=== PATIENT | male | born 1960 | race African-American/Black ===

== ENCOUNTER 2017-06-06 07:28 | Inpatient (IN) ==
[2017-06-06] MEDS ORDERED: LEVOFLOXACIN INJ 500 MG in PREMIX 1 EACH IV STA (10:07)
[2017-06-06] MEDS ORDERED: LEVOFLOXACIN INJ 100 ML IV ONE (10:43)
[2017-06-06 10:48] LABS: Basophils % 0.5 % (0.0-0.8); Eosinophils % 0.4 % (0.00-10.9); Hematocrit 33.4 VOL% (42.0-52.0); Hemoglobin 11.9 GM/DL (14.0-18.0); Immature Granulocytes % 0.4 %; Immature Granulocytes Absolute 0.03 #; Lymphocytes # 1.1 10*3/uL (1.4-4.0); Lymphocytes % 13.1 % (21.2-54.2); Mean Corpuscular HGB Conc 35.6 GM/DL (32-36); Mean Corpuscular Hemoglobin 32 PG (27-34); Mean Corpuscular Volume 90.8 FL (87-102); Mean Platelet Volume 9.3 FL (9.6-12.0); Monocytes % 12.5 % (1.7-12.7); Neutrophils # 5.9 10*3/uL (1.4-7.4); Neutrophils % 73.1 % (38.7-73.9); Platelet Count 310 T/CUMM (130-400); Red Blood Count 3.68 MC/CUMM (3.8-5.5)
[2017-06-06 10:59] LABS: Apearance,Urine CLEAR (Clear); Bilirubin,Urine Negative (Negative); Blood, Urine Negative (Negative); Glucose,Urine (UA) Negative (Negative); Ketones,Urine Negative (Negative); Mucus,Urine Occasional /LPF (Occasional); Nitrite,Urine Negative (Negative); Protein,Urine Negative; RBC,Urine <1 /HPF (0-4); Squamous Epithelial Cell,Urine Occasional /HPF (0-10); Urine Color Yellow (Yellow); Urine Specific Gravity 1.017 (1.001-1.035); WBC,Urine 2 /HPF (0-6)
[2017-06-06 11:27] LABS: Alanine Aminotransferase < 9 U/L (16-61); Albumin 2.2 G/DL (3.4-5.0); Alkaline Phosphatase 83 U/L (45-117); Aspartate Amino Transferase 22 U/L (0-37); Bilirubin,Total < 0.39 MG/DL (0.2-1.0); Blood Urea Nitrogen 10 MG/DL (7-18); Calcium 8.5 MG/DL (8.5-10.1); Glucose 102 MG/DL (74-106); Osmolality,Calculated 262.5 MOS/KG (273-304); Potassium 4.2 MMOL/L (3.5-5.1); Sodium 132 MMOL/L (136-145); Total Protein 7.3 G/DL (6.4-8.3)
[2017-06-06 13:27] LABS: Barbiturates Screen,Urine Negative (Negative); Benzodiazepines Screen,Urine Negative (Negative); Cannabinoid Screen,Urine Negative (Negative); Opiate Screen,Urine Negative (Negative); Phencyclidine Screen,Urine Negative (Negative)
[2017-06-06] MEDS ORDERED: SODIUM CHLORIDE 0.9% 1,000 ML IV SCH (13:30)
[2017-06-06] MEDS ORDERED: LEVOFLOXACIN INJ 500 MG in PREMIX 1 EACH IV SCH (14:00)
[2017-06-06] MEDS ORDERED: LORazepam 2 MG/1 ML VIAL IV PRN (18:18)
[2017-06-06] MEDS ORDERED: NICOTINE 21 MG/24 HR PATCH TRANSDERM PRN (18:18)
[2017-06-06] MEDS: PANTOPRAZOLE 40 MG VIAL IV SCH (18:20)
[2017-06-06] MEDS: DEXTROSE 5% NACL 0.9% 1,000 ML IV SCH (18:28)
[2017-06-06] MEDS: ENOXAPARIN 40 MG/0.4 ML SYRINGE SUBCUT SCH (18:32)
[2017-06-06] MEDS: THIAMINE 200 MG/2 ML VIAL IV SCH (18:43)
[2017-06-06] MEDS: DOCUSATE SODIUM 100 MG CAPSULE PO SCH (20:42)
[2017-06-06] MEDS: MULTIVITAMIN INJ 10 ML in DEXTROSE 5% NACL 0.9% 1,000 ML IV SCH (22:00)
[2017-06-06] MEDS: FOLIC ACID INJ 1 MG in SYRINGE 1 EACH IV SCH (22:00)
[2017-06-07 06:55] LABS: Basophils % 0.6 % (0.0-0.8); Eosinophils # 0.1 10*3/uL (0.0-0.87); Eosinophils % 1.1 % (0.00-10.9); Hematocrit 30.3 VOL% (42.0-52.0); Hemoglobin 10.7 GM/DL (14.0-18.0); Immature Granulocytes % 0.4 %; Immature Granulocytes Absolute 0.03 #; Lymphocytes % 13.4 % (21.2-54.2); Mean Corpuscular HGB Conc 35.3 GM/DL (32-36); Mean Corpuscular Hemoglobin 32 PG (27-34); Mean Corpuscular Volume 89.9 FL (87-102); Mean Platelet Volume 9.8 FL (9.6-12.0); Monocytes # 0.9 10*3/uL (0.11-0.8); Monocytes % 12.5 % (1.7-12.7); Neutrophils # 5.2 10*3/uL (1.4-7.4); Platelet Count 301 T/CUMM (130-400); Red Blood Count 3.37 MC/CUMM (3.8-5.5); Red Cell Distribution Width 12.9 % (9.3-17.3); White Blood Count 7.2 T/CUMM (4-12)
[2017-06-07 07:12] LABS: Calcium 7.8 MG/DL (8.5-10.1); Magnesium 2.1 MG/DL (1.8-2.4); Osmolality,Calculated 262.5 MOS/KG (273-304); Potassium 4.1 MMOL/L (3.5-5.1)
[2017-06-07 07:30] LABS: Eosinophils 1 % (0-10); Hypochromasia Slight; Lymphocytes 22 % (20-55); Platelet Estimate Normal; Segmented Neutrophils 69 % (50-85); Total Cells Counted 100
[2017-06-07] MEDS ORDERED: PANTOPRAZOLE 40 MG TABLET PO SCH (09:00)
[2017-06-07] MEDS: PANTOPRAZOLE 40 MG VIAL IV SCH (09:05)
[2017-06-07] MEDS: DOCUSATE SODIUM 100 MG CAPSULE PO SCH ×2 (09:07→20:18)
[2017-06-07] MEDS: THIAMINE 200 MG/2 ML VIAL IV SCH (09:07)
[2017-06-07 09:33] LABS: PT Patient Result 10.9 SECS; Partial Thromboplastin Time 32.2 SECS (0-40)
[2017-06-07] MEDS: DEXTROSE 5% NACL 0.9% 1,000 ML IV SCH ×3 (10:18→23:23)
[2017-06-07] MEDS: FOLIC ACID INJ 1 MG in SYRINGE 1 EACH IV SCH (10:19)
[2017-06-07] MEDS: LEVOFLOXACIN INJ 750 MG in PREMIX 1 EACH IV SCH (10:38)
[2017-06-07] MEDS ORDERED: LEVOFLOXACIN INJ 500 MG in PREMIX 1 EACH IV SCH (14:00)
[2017-06-07] MEDS: ENOXAPARIN 40 MG/0.4 ML SYRINGE SUBCUT SCH (18:17)
[2017-06-07] MEDS: MULTIVITAMIN INJ 10 ML in DEXTROSE 5% NACL 0.9% 1,000 ML IV SCH (20:12)
[2017-06-08 06:24] LABS: Basophils % 0.3 % (0.0-0.8); Eosinophils % 0.3 % (0.00-10.9); Hematocrit 30.9 VOL% (42.0-52.0); Immature Granulocytes % 0.8 %; Immature Granulocytes Absolute 0.06 #; Lymphocytes # 0.8 10*3/uL (1.4-4.0); Lymphocytes % 10.8 % (21.2-54.2); Mean Corpuscular HGB Conc 35.6 GM/DL (32-36); Mean Corpuscular Hemoglobin 32 PG (27-34); Mean Corpuscular Volume 89.3 FL (87-102); Mean Platelet Volume 9.7 FL (9.6-12.0); Monocytes # 0.9 10*3/uL (0.11-0.8); Monocytes % 11.5 % (1.7-12.7); Neutrophils % 76.3 % (38.7-73.9); Platelet Count 280 T/CUMM (130-400); Red Blood Count 3.46 MC/CUMM (3.8-5.5); Red Cell Distribution Width 12.8 % (9.3-17.3); White Blood Count 7.8 T/CUMM (4-12)
[2017-06-08 06:50] LABS: Calcium 8.2 MG/DL (8.5-10.1); Osmolality,Calculated 266.2 MOS/KG (273-304)
[2017-06-08] MEDS ORDERED: PROMETHAZINE 25 MG/1 ML VIAL IM ONE (07:00)
[2017-06-08] MEDS ORDERED: MEPERIDINE 50 MG/1 ML VIAL IM ONE (07:00)
[2017-06-08] MEDS ORDERED: MIDAZOLAM 2 MG/2 ML VIAL ONE (07:03)
[2017-06-08] MEDS ORDERED: LIDOCAINE 2% 20 ML VIAL RESP TX ONE (07:30)
[2017-06-08] MEDS ORDERED: LIDOCAINE 1% 20 ML VIAL MISC INJ ONE (07:30)
[2017-06-08] MEDS ORDERED: MIDAZOLAM 2 MG/2 ML VIAL IV ONE (07:30)
[2017-06-08] MEDS: THIAMINE 200 MG/2 ML VIAL IV SCH (10:36)
[2017-06-08] MEDS: DOCUSATE SODIUM 100 MG CAPSULE PO SCH ×2 (10:36→20:59)
[2017-06-08] MEDS: LEVOFLOXACIN INJ 750 MG in PREMIX 1 EACH IV SCH (10:36)
[2017-06-08] MEDS: PANTOPRAZOLE 40 MG VIAL IV SCH (10:37)
[2017-06-08] MEDS: FOLIC ACID INJ 1 MG in SYRINGE 1 EACH IV SCH (10:38)
[2017-06-08] MEDS: DEXTROSE 5% NACL 0.9% 1,000 ML IV SCH (10:38)
[2017-06-08] MEDS: POLYETHYLENE GLYCOL POWDER 17 GM PACK PO SCH (16:29)
[2017-06-08] MEDS: ENOXAPARIN 40 MG/0.4 ML SYRINGE SUBCUT SCH (18:38)
[2017-06-08] MEDS: MULTIVITAMIN INJ 10 ML in DEXTROSE 5% NACL 0.9% 1,000 ML IV SCH (22:00)
[2017-06-09] MEDS: ACETAMINOPHEN 325 MG TABLET PO PRN ×2 (00:31→08:39)
[2017-06-09] MEDS: DEXTROSE 5% NACL 0.9% 1,000 ML IV SCH ×2 (03:13→13:00)
[2017-06-09 06:56] LABS: Basophils % 0.4 % (0.0-0.8); Eosinophils % 0.4 % (0.00-10.9); Hematocrit 29.3 VOL% (42.0-52.0); Hemoglobin 10.3 GM/DL (14.0-18.0); Immature Granulocytes % 0.5 %; Immature Granulocytes Absolute 0.04 #; Lymphocytes # 1.2 10*3/uL (1.4-4.0); Lymphocytes % 13.6 % (21.2-54.2); Mean Corpuscular HGB Conc 35.2 GM/DL (32-36); Mean Corpuscular Hemoglobin 32 PG (27-34); Mean Corpuscular Volume 89.9 FL (87-102); Mean Platelet Volume 9.7 FL (9.6-12.0); Monocytes # 1.1 10*3/uL (0.11-0.8); Monocytes % 12.6 % (1.7-12.7); Neutrophils # 6.2 10*3/uL (1.4-7.4); Neutrophils % 72.5 % (38.7-73.9); Platelet Count 252 T/CUMM (130-400); Red Blood Count 3.26 MC/CUMM (3.8-5.5); Red Cell Distribution Width 13.1 % (9.3-17.3); White Blood Count 8.5 T/CUMM (4-12)
[2017-06-09 07:23] LABS: Hypochromasia 1+; Polychromasia Slight
[2017-06-09 07:30] LABS: Calcium 7.8 MG/DL (8.5-10.1); Magnesium 1.8 MG/DL (1.8-2.4); Osmolality,Calculated 264.4 MOS/KG (273-304); Potassium 3.9 MMOL/L (3.5-5.1)
[2017-06-09] MEDS: THIAMINE 200 MG/2 ML VIAL IV SCH (08:36)
[2017-06-09] MEDS: PANTOPRAZOLE 40 MG VIAL IV SCH (08:37)
[2017-06-09] MEDS ORDERED: MAGNESIUM HYDROXIDE SUSP 30 ML UDCUP PO PRN (08:38)
[2017-06-09] MEDS: DOCUSATE SODIUM 100 MG CAPSULE PO SCH ×2 (08:39→20:47)
[2017-06-09] MEDS ORDERED: BISACODYL 5 MG TABLET PO ONE (08:40)
[2017-06-09] MEDS ORDERED: BISACODYL 5 MG TABLET ONE (08:43)
[2017-06-09] MEDS: methylPREDNISolone SOD SUC 40 MG/1 ML VIAL IV SCH ×2 (08:46→20:47)
[2017-06-09] MEDS: CLINDAMYCIN INJ 600 MG in PREMIX 1 EACH IV SCH ×2 (08:50→16:10)
[2017-06-09] MEDS: FOLIC ACID INJ 1 MG in SYRINGE 1 EACH IV SCH (08:53)
[2017-06-09] MEDS: POLYETHYLENE GLYCOL POWDER 17 GM PACK PO SCH (09:51)
[2017-06-09] MEDS: LEVOFLOXACIN INJ 750 MG in PREMIX 1 EACH IV SCH (09:51)
[2017-06-09] MEDS: ENOXAPARIN 40 MG/0.4 ML SYRINGE SUBCUT SCH (18:04)
[2017-06-09] MEDS: MULTIVITAMIN INJ 10 ML in DEXTROSE 5% NACL 0.9% 1,000 ML IV SCH (20:44)
[2017-06-10] MEDS: CLINDAMYCIN INJ 600 MG in PREMIX 1 EACH IV SCH ×3 (01:21→16:45)
[2017-06-10] MEDS: DEXTROSE 5% NACL 0.9% 1,000 ML IV SCH ×3 (02:21→15:52)
[2017-06-10] MEDS: ACETAMINOPHEN 325 MG TABLET PO PRN (04:44)
[2017-06-10 07:03] LABS: Basophils % 0.1 % (0.0-0.8); Hematocrit 27.5 VOL% (42.0-52.0); Hemoglobin 9.8 GM/DL (14.0-18.0); Immature Granulocytes % 0.8 %; Immature Granulocytes Absolute 0.08 #; Lymphocytes # 0.6 10*3/uL (1.4-4.0); Lymphocytes % 5.8 % (21.2-54.2); Mean Corpuscular HGB Conc 35.6 GM/DL (32-36); Mean Corpuscular Hemoglobin 32 PG (27-34); Mean Corpuscular Volume 89.3 FL (87-102); Mean Platelet Volume 9.7 FL (9.6-12.0); Monocytes # 0.7 10*3/uL (0.11-0.8); Monocytes % 6.5 % (1.7-12.7); Neutrophils # 8.9 10*3/uL (1.4-7.4); Neutrophils % 86.8 % (38.7-73.9); Platelet Count 259 T/CUMM (130-400); Red Blood Count 3.08 MC/CUMM (3.8-5.5); Red Cell Distribution Width 13.1 % (9.3-17.3); White Blood Count 10.3 T/CUMM (4-12)
[2017-06-10 07:38] LABS: Calcium 8.2 MG/DL (8.5-10.1); Magnesium 2.1 MG/DL (1.8-2.4); Osmolality,Calculated 267.4 MOS/KG (273-304)
[2017-06-10] MEDS: DOCUSATE SODIUM 100 MG CAPSULE PO SCH ×2 (08:49→21:47)
[2017-06-10] MEDS: PANTOPRAZOLE 40 MG VIAL IV SCH (08:49)
[2017-06-10] MEDS: methylPREDNISolone SOD SUC 40 MG/1 ML VIAL IV SCH ×2 (08:49→21:46)
[2017-06-10] MEDS: THIAMINE 200 MG/2 ML VIAL IV SCH (08:49)
[2017-06-10] MEDS: POLYETHYLENE GLYCOL POWDER 17 GM PACK PO SCH (08:50)
[2017-06-10] MEDS: LEVOFLOXACIN INJ 750 MG in PREMIX 1 EACH IV SCH (10:08)
[2017-06-10] MEDS: FOLIC ACID INJ 1 MG in SYRINGE 1 EACH IV SCH (10:08)
[2017-06-10 12:45] LABS: Carcinoembryonic Antigen 14.7 NG/ML (0.0-5.0)
[2017-06-10 13:53] LABS: Cancer Antigen 19-9 6130.4 U/ML (0-37)
[2017-06-10] MEDS: ENOXAPARIN 40 MG/0.4 ML SYRINGE SUBCUT SCH (18:00)
[2017-06-10] MEDS: MULTIVITAMIN INJ 10 ML in DEXTROSE 5% NACL 0.9% 1,000 ML IV SCH (19:59)
[2017-06-11] MEDS: CLINDAMYCIN INJ 600 MG in PREMIX 1 EACH IV SCH ×3 (00:28→16:45)
[2017-06-11 03:42] LABS: Hematocrit 26.8 VOL% (42.0-52.0); Hemoglobin 9.5 GM/DL (14.0-18.0); Immature Granulocytes % 0.7 %; Immature Granulocytes Absolute 0.07 #; Lymphocytes # 0.5 10*3/uL (1.4-4.0); Lymphocytes % 4.8 % (21.2-54.2); Mean Corpuscular HGB Conc 35.4 GM/DL (32-36); Mean Corpuscular Hemoglobin 32 PG (27-34); Mean Corpuscular Volume 89.6 FL (87-102); Mean Platelet Volume 9.8 FL (9.6-12.0); Monocytes # 0.5 10*3/uL (0.11-0.8); Monocytes % 4.6 % (1.7-12.7); Neutrophils # 8.9 10*3/uL (1.4-7.4); Neutrophils % 89.9 % (38.7-73.9); Platelet Count 289 T/CUMM (130-400); Red Blood Count 2.99 MC/CUMM (3.8-5.5); Red Cell Distribution Width 13.2 % (9.3-17.3); White Blood Count 9.9 T/CUMM (4-12)
[2017-06-11 04:25] LABS: Albumin 1.9 G/DL (3.4-5.0); Bilirubin,Total 0.6 MG/DL (0.2-1.0); Calcium 8.1 MG/DL (8.5-10.1); Magnesium 2.2 MG/DL (1.8-2.4); Osmolality,Calculated 274.8 MOS/KG (273-304); Phosphorous 3.2 MG/DL (2.5-4.9); Potassium 4.3 MMOL/L (3.5-5.1); Total Protein 6.1 G/DL (6.4-8.3)
[2017-06-11 04:50] LABS: Band Neutrophils 2 % (0-10); Lymphocytes 5 % (20-55); Platelet Estimate Normal; Segmented Neutrophils 93 % (50-85); Total Cells Counted 100
[2017-06-11] MEDS: DEXTROSE 5% NACL 0.9% 1,000 ML IV SCH ×2 (06:04→19:18)
[2017-06-11] MEDS: FOLIC ACID INJ 1 MG in SYRINGE 1 EACH IV SCH (09:53)
[2017-06-11] MEDS: methylPREDNISolone SOD SUC 40 MG/1 ML VIAL IV SCH ×2 (09:54→21:14)
[2017-06-11] MEDS: PANTOPRAZOLE 40 MG VIAL IV SCH (09:54)
[2017-06-11] MEDS: POLYETHYLENE GLYCOL POWDER 17 GM PACK PO SCH (09:55)
[2017-06-11] MEDS: DOCUSATE SODIUM 100 MG CAPSULE PO SCH ×2 (09:55→21:14)
[2017-06-11] MEDS: THIAMINE 200 MG/2 ML VIAL IV SCH (09:55)
[2017-06-11] MEDS: LEVOFLOXACIN INJ 750 MG in PREMIX 1 EACH IV SCH (10:45)
[2017-06-11] MEDS: MULTIVITAMIN INJ 10 ML in DEXTROSE 5% NACL 0.9% 1,000 ML IV SCH (19:19)
[2017-06-11] MEDS: ENOXAPARIN 40 MG/0.4 ML SYRINGE SUBCUT SCH (19:19)
[2017-06-12] MEDS: CLINDAMYCIN INJ 600 MG in PREMIX 1 EACH IV SCH ×3 (00:45→16:57)
[2017-06-12 02:49] LABS: Hematocrit 29.3 VOL% (42.0-52.0); Hemoglobin 10.1 GM/DL (14.0-18.0); Immature Granulocytes % 0.5 %; Immature Granulocytes Absolute 0.04 #; Lymphocytes # 0.5 10*3/uL (1.4-4.0); Mean Corpuscular HGB Conc 34.5 GM/DL (32-36); Mean Corpuscular Hemoglobin 31 PG (27-34); Mean Corpuscular Volume 90.2 FL (87-102); Mean Platelet Volume 9.9 FL (9.6-12.0); Monocytes # 0.4 10*3/uL (0.11-0.8); Monocytes % 4.6 % (1.7-12.7); Neutrophils # 7.3 10*3/uL (1.4-7.4); Neutrophils % 88.9 % (38.7-73.9); Platelet Count 299 T/CUMM (130-400); Red Blood Count 3.25 MC/CUMM (3.8-5.5); Red Cell Distribution Width 13.7 % (9.3-17.3); White Blood Count 8.2 T/CUMM (4-12)
[2017-06-12 03:07] LABS: Albumin 1.8 G/DL (3.4-5.0); Bilirubin,Total 0.6 MG/DL (0.2-1.0); Calcium 8.2 MG/DL (8.5-10.1); Magnesium 2.2 MG/DL (1.8-2.4); Osmolality,Calculated 278.5 MOS/KG (273-304); Phosphorous 3.6 MG/DL (2.5-4.9); Potassium 4.1 MMOL/L (3.5-5.1); Total Protein 6.1 G/DL (6.4-8.3)
[2017-06-12 04:29] LABS: Platelet Estimate Normal
[2017-06-12] MEDS: DEXTROSE 5% NACL 0.9% 1,000 ML IV SCH (06:14)
[2017-06-12] MEDS: THIAMINE 200 MG/2 ML VIAL IV SCH (09:02)
[2017-06-12] MEDS: DOCUSATE SODIUM 100 MG CAPSULE PO SCH ×2 (09:02→20:38)
[2017-06-12] MEDS: methylPREDNISolone SOD SUC 40 MG/1 ML VIAL IV SCH ×2 (09:02→20:39)
[2017-06-12] MEDS: FOLIC ACID INJ 1 MG in SYRINGE 1 EACH IV SCH (09:03)
[2017-06-12] MEDS: PANTOPRAZOLE 40 MG VIAL IV SCH (09:04)
[2017-06-12] MEDS: POLYETHYLENE GLYCOL POWDER 17 GM PACK PO SCH (09:04)
[2017-06-12] MEDS: LEVOFLOXACIN INJ 750 MG in PREMIX 1 EACH IV SCH (09:33)
[2017-06-12] MEDS ORDERED: BISACODYL 5 MG TABLET PO ONE (12:00)
[2017-06-12] MEDS ORDERED: POLYETHYLENE GLYCOL POWDER 255 GM BOTTLE PO ONE ×2 (12:00→18:00)
[2017-06-12] MEDS: ENOXAPARIN 40 MG/0.4 ML SYRINGE SUBCUT SCH (18:46)
[2017-06-12] MEDS: MULTIVITAMIN INJ 10 ML in DEXTROSE 5% NACL 0.9% 1,000 ML IV SCH (20:39)
[2017-06-12] MEDS ORDERED: MAGNESIUM CITRATE 300 ML BOTTLE PO ONE (21:00)
[2017-06-13] MEDS: CLINDAMYCIN INJ 600 MG in PREMIX 1 EACH IV SCH ×3 (00:01→17:10)
[2017-06-13] MEDS: MORPHINE 2 MG/1 ML SYRINGE IV PRN ×2 (00:05→10:23)
[2017-06-13] MEDS: DEXTROSE 5% NACL 0.9% 1,000 ML IV SCH ×3 (00:06→09:57)
[2017-06-13 06:44] LABS: Hemoglobin 10.2 GM/DL (14.0-18.0); Lymphocytes # 1.1 10*3/uL (1.4-4.0); Lymphocytes % 11.8 % (21.2-54.2); Mean Corpuscular HGB Conc 35.2 GM/DL (32-36); Mean Corpuscular Hemoglobin 32 PG (27-34); Mean Corpuscular Volume 89.8 FL (87-102); Mean Platelet Volume 9.9 FL (9.6-12.0); Monocytes # 0.9 10*3/uL (0.11-0.8); Monocytes % 9.4 % (1.7-12.7); Neutrophils # 7.4 10*3/uL (1.4-7.4); Neutrophils % 77.8 % (38.7-73.9); Platelet Count 279 T/CUMM (130-400); Red Blood Count 3.23 MC/CUMM (3.8-5.5); Red Cell Distribution Width 13.5 % (9.3-17.3); White Blood Count 9.6 T/CUMM (4-12)
[2017-06-13 07:19] LABS: Bilirubin,Total 0.6 MG/DL (0.2-1.0); Calcium 8.6 MG/DL (8.5-10.1); Magnesium 2.5 MG/DL (1.8-2.4); Osmolality,Calculated 275.5 MOS/KG (273-304); Phosphorous 4.1 MG/DL (2.5-4.9); Potassium 4.2 MMOL/L (3.5-5.1); Total Protein 6.2 G/DL (6.4-8.3)
[2017-06-13] MEDS: methylPREDNISolone SOD SUC 40 MG/1 ML VIAL IV SCH ×2 (09:56→20:37)
[2017-06-13] MEDS: DOCUSATE SODIUM 100 MG CAPSULE PO SCH ×2 (09:58→20:38)
[2017-06-13] MEDS: POLYETHYLENE GLYCOL POWDER 17 GM PACK PO SCH (10:01)
[2017-06-13] MEDS: PANTOPRAZOLE 40 MG VIAL IV SCH (10:25)
[2017-06-13] MEDS: THIAMINE 200 MG/2 ML VIAL IV SCH (10:26)
[2017-06-13] MEDS: FOLIC ACID INJ 1 MG in SYRINGE 1 EACH IV SCH (10:26)
[2017-06-13] MEDS ORDERED: LIDOCAINE 2% 5 ML VIAL ONE (12:06)
[2017-06-13] MEDS ORDERED: PROPOFOL 200 MG/20 ML VIAL IV ONE (12:06)
[2017-06-13] MEDS ORDERED: PHENYLEPHRINE 1 MG/10 ML SYRINGE IV ONE (12:06)
[2017-06-13 13:41] LABS: INR 1.1; PT Patient Result 11.1 SECS
[2017-06-13] MEDS: LEVOFLOXACIN INJ 750 MG in PREMIX 1 EACH IV SCH (14:45)
[2017-06-13] MEDS: ENOXAPARIN 40 MG/0.4 ML SYRINGE SUBCUT SCH (18:02)
[2017-06-13] MEDS: MULTIVITAMIN INJ 10 ML in DEXTROSE 5% NACL 0.9% 1,000 ML IV SCH (20:37)
[2017-06-14] MEDS: CLINDAMYCIN INJ 600 MG in PREMIX 1 EACH IV SCH (00:06)
[2017-06-14] MEDS: DEXTROSE 5% NACL 0.9% 1,000 ML IV SCH ×3 (00:07→10:40)
[2017-06-14 07:14] LABS: Eosinophils % 0.1 % (0.00-10.9); Hematocrit 27.6 VOL% (42.0-52.0); Hemoglobin 9.7 GM/DL (14.0-18.0); Immature Granulocytes % 0.7 %; Immature Granulocytes Absolute 0.08 #; Lymphocytes # 1.3 10*3/uL (1.4-4.0); Lymphocytes % 11.3 % (21.2-54.2); Mean Corpuscular HGB Conc 35.1 GM/DL (32-36); Mean Corpuscular Hemoglobin 32 PG (27-34); Mean Corpuscular Volume 89.9 FL (87-102); Mean Platelet Volume 9.6 FL (9.6-12.0); Monocytes # 1.1 10*3/uL (0.11-0.8); Monocytes % 9.6 % (1.7-12.7); Neutrophils # 9.3 10*3/uL (1.4-7.4); Neutrophils % 78.3 % (38.7-73.9); Platelet Count 229 T/CUMM (130-400); Red Blood Count 3.07 MC/CUMM (3.8-5.5); Red Cell Distribution Width 13.9 % (9.3-17.3); White Blood Count 11.8 T/CUMM (4-12)
[2017-06-14 07:47] LABS: Bilirubin,Total 0.7 MG/DL (0.2-1.0); Calcium 8.3 MG/DL (8.5-10.1); Magnesium 2.1 MG/DL (1.8-2.4); Phosphorous 3.8 MG/DL (2.5-4.9)
[2017-06-14] MEDS ORDERED: predniSONE 20 MG TABLET PO SCH (09:00)
[2017-06-14] MEDS ORDERED: CEFUROXIME 500 MG TABLET PO SCH (09:00)
[2017-06-14] MEDS: DOCUSATE SODIUM 100 MG CAPSULE PO SCH (09:34)
[2017-06-14] MEDS: THIAMINE 200 MG/2 ML VIAL IV SCH (09:34)
[2017-06-14] MEDS: PANTOPRAZOLE 40 MG VIAL IV SCH (09:34)
[2017-06-14] MEDS: POLYETHYLENE GLYCOL POWDER 17 GM PACK PO SCH (09:34)
[2017-06-14] MEDS: FOLIC ACID INJ 1 MG in SYRINGE 1 EACH IV SCH (09:44)
[2017-06-14 12:08] VITALS: BP 133/85
== END 2017-06-14 12:55 | disposition home or self-care (01) | DRG 180 ==
LOC: N.ED 07:28 → N.EDINP 12:35 → SUATTDRO 12:35 → N.5E 18:11
PROVIDERS: ADMIT Internal Medicine
PROC: BRONCHB (2017-06-08 07:20)

== ENCOUNTER 2017-06-19 10:38 | Inpatient (IN) ==
[2017-06-19] MEDS ORDERED: methylPREDNISolone SOD SUC 125 MG/2 ML VIAL IV STA (11:11)
[2017-06-19] MEDS ORDERED: ALBUTEROL/IPRATROPIUM 3 ML NEB RESP TX STA (11:11)
[2017-06-19] MEDS ORDERED: LEVOFLOXACIN INJ 750 MG in PREMIX 1 EACH IV STA (11:11)
[2017-06-19 11:25] LABS: Basophils % 0.2 % (0.0-0.8); Hemoglobin 10.8 GM/DL (14.0-18.0); Immature Granulocytes % 0.6 %; Immature Granulocytes Absolute 0.11 #; Lymphocytes # 1.2 10*3/uL (1.4-4.0); Lymphocytes % 6.9 % (21.2-54.2); Mean Corpuscular HGB Conc 34.8 GM/DL (32-36); Mean Corpuscular Hemoglobin 31 PG (27-34); Mean Corpuscular Volume 88.3 FL (87-102); Mean Platelet Volume 9.7 FL (9.6-12.0); Monocytes # 1.3 10*3/uL (0.11-0.8); Monocytes % 7.5 % (1.7-12.7); Neutrophils # 15.1 10*3/uL (1.4-7.4); Neutrophils % 84.8 % (38.7-73.9); Platelet Count 193 T/CUMM (130-400); Red Blood Count 3.51 MC/CUMM (3.8-5.5); Red Cell Distribution Width 13.9 % (9.3-17.3); White Blood Count 17.8 T/CUMM (4-12)
[2017-06-19] MEDS ORDERED: TERBUTALINE 1 MG/1 ML VIAL SUBCUT ONE (11:38)
[2017-06-19] MEDS ORDERED: LEVOFLOXACIN INJ 150 ML IV ONE (11:38)
[2017-06-19] MEDS ORDERED: methylPREDNISolone SOD SUC 125 MG/2 ML VIAL ONE (11:38)
[2017-06-19] MEDS: TERBUTALINE 1 MG/1 ML VIAL SUBCUT SCH ×2 (11:40→12:15)
[2017-06-19 12:07] LABS: Alanine Aminotransferase 109 U/L (16-61); Albumin 2.2 G/DL (3.4-5.0); Alkaline Phosphatase 179 U/L (45-117); Aspartate Amino Transferase 370 U/L (0-37); Blood Urea Nitrogen 16 MG/DL (7-18); Calcium 8.2 MG/DL (8.5-10.1); Glucose 113 MG/DL (74-106); Osmolality,Calculated 267.4 MOS/KG (273-304); Sodium 133 MMOL/L (136-145); Total Protein 7.1 G/DL (6.4-8.3)
[2017-06-19 12:09] LABS: Apearance,Urine Slightly Hazy (Clear); Bilirubin,Urine Negative (Negative); Blood, Urine Negative (Negative); Glucose,Urine (UA) 50 mg/dL (Negative); Ketones,Urine 5 mg/dL (Negative); Mucus,Urine Occasional /LPF (Occasional); Nitrite,Urine Negative (Negative); Protein,Urine 30 MG/DL; RBC,Urine 1 /HPF (0-4); Urine Color Amber (Yellow); Urine Specific Gravity 1.017 (1.001-1.035); WBC,Urine 3 /HPF (0-6)
[2017-06-19] MEDS ORDERED: ASPIRIN 325 MG TABLET PO STA (12:12)
[2017-06-19] MEDS ORDERED: NITROGLYCERIN 2% OINT 1 INCH/GM PACK TOP STA (12:12)
[2017-06-19 12:27] LABS: Barbiturates Screen,Urine Negative (Negative); Benzodiazepines Screen,Urine Negative (Negative); Cannabinoid Screen,Urine Negative (Negative); Opiate Screen,Urine Positive (Negative); Phencyclidine Screen,Urine Negative (Negative)
[2017-06-19] MEDS ORDERED: NITROGLYCERIN 2% OINT 1 INCH/GM PACK TOP ONE (12:50)
[2017-06-19] MEDS ORDERED: ASPIRIN 325 MG TABLET ONE (12:50)
[2017-06-19] MEDS ORDERED: ONDANSETRON 4 MG/2 ML VIAL IV PRN (12:51)
[2017-06-19] MEDS ORDERED: ACETAMINOPHEN 325 MG TABLET PO PRN (12:51)
[2017-06-19] MEDS ORDERED: NITROGLYCERIN SL 0.4 MG TABLET SL PRN (13:46)
[2017-06-19] MEDS: SODIUM CHLORIDE 0.45% 1,000 ML IV SCH ×2 (14:31→22:23)
[2017-06-19] MEDS: LEVOFLOXACIN INJ 750 MG in PREMIX 1 EACH IV SCH (14:32)
[2017-06-19] MEDS: ENOXAPARIN 40 MG/0.4 ML SYRINGE SUBCUT SCH (14:56)
[2017-06-19 15:23] LABS: INR 1.2; PT Patient Result 12.2 SECS
[2017-06-19] MEDS: methylPREDNISolone SOD SUC 40 MG/1 ML VIAL IV SCH (20:36)
[2017-06-19] MEDS: DOCUSATE SODIUM 100 MG CAPSULE PO SCH (20:36)
[2017-06-20] MEDS: methylPREDNISolone SOD SUC 40 MG/1 ML VIAL IV SCH ×3 (03:37→20:59)
[2017-06-20 04:53] LABS: Basophils % 0.1 % (0.0-0.8); Hematocrit 30.2 VOL% (42.0-52.0); Hemoglobin 10.7 GM/DL (14.0-18.0); Immature Granulocytes Absolute 0.16 #; Lymphocytes # 0.6 10*3/uL (1.4-4.0); Lymphocytes % 3.6 % (21.2-54.2); Mean Corpuscular HGB Conc 35.4 GM/DL (32-36); Mean Corpuscular Hemoglobin 31 PG (27-34); Mean Platelet Volume 10.3 FL (9.6-12.0); Monocytes # 0.4 10*3/uL (0.11-0.8); Monocytes % 2.2 % (1.7-12.7); Neutrophils # 15.3 10*3/uL (1.4-7.4); Neutrophils % 93.1 % (38.7-73.9); Platelet Count 222 T/CUMM (130-400); Red Blood Count 3.47 MC/CUMM (3.8-5.5); Red Cell Distribution Width 13.8 % (9.3-17.3); White Blood Count 16.5 T/CUMM (4-12)
[2017-06-20 05:29] LABS: Giant Platelets Few; Hypochromasia 1+; Lymphocytes 5 % (20-55); Platelet Estimate Adequate; Segmented Neutrophils 93 % (50-85); Total Cells Counted 100
[2017-06-20 05:33] LABS: Albumin 2.2 G/DL (3.4-5.0); Bilirubin,Total 0.5 MG/DL (0.2-1.0); Calcium 8.6 MG/DL (8.5-10.1); Magnesium 2.5 MG/DL (1.8-2.4); Osmolality,Calculated 268.5 MOS/KG (273-304); Potassium 4.2 MMOL/L (3.5-5.1); Total Protein 7.3 G/DL (6.4-8.3)
[2017-06-20] MEDS: SODIUM CHLORIDE 0.45% 1,000 ML IV SCH ×3 (06:20→21:01)
[2017-06-20] MEDS ORDERED: predniSONE 20 MG TABLET PO SCH (09:00)
[2017-06-20] MEDS: DOCUSATE SODIUM 100 MG CAPSULE PO SCH ×2 (09:11→21:01)
[2017-06-20] MEDS: PANTOPRAZOLE 40 MG TABLET PO SCH (09:11)
[2017-06-20] MEDS: LEVOFLOXACIN INJ 750 MG in PREMIX 1 EACH IV SCH (12:50)
[2017-06-20] MEDS: ENOXAPARIN 40 MG/0.4 ML SYRINGE SUBCUT SCH (12:50)
[2017-06-20] MEDS: ASPIRIN EC 81 MG TABLET PO SCH (14:48)
[2017-06-20] MEDS: APIXABAN 5 MG TABLET PO SCH (21:01)
[2017-06-21 05:03] LABS: Basophils % 0.1 % (0.0-0.8); Hematocrit 25.6 VOL% (42.0-52.0); Immature Granulocytes % 0.7 %; Immature Granulocytes Absolute 0.13 #; Lymphocytes # 0.6 10*3/uL (1.4-4.0); Lymphocytes % 3.4 % (21.2-54.2); Mean Corpuscular HGB Conc 35.2 GM/DL (32-36); Mean Corpuscular Hemoglobin 31 PG (27-34); Mean Corpuscular Volume 87.4 FL (87-102); Mean Platelet Volume 10.5 FL (9.6-12.0); Monocytes # 0.6 10*3/uL (0.11-0.8); Monocytes % 3.3 % (1.7-12.7); Neutrophils # 16.3 10*3/uL (1.4-7.4); Neutrophils % 92.5 % (38.7-73.9); Platelet Count 212 T/CUMM (130-400); Red Blood Count 2.93 MC/CUMM (3.8-5.5); Red Cell Distribution Width 13.9 % (9.3-17.3); White Blood Count 17.7 T/CUMM (4-12)
[2017-06-21] MEDS: methylPREDNISolone SOD SUC 40 MG/1 ML VIAL IV SCH ×3 (05:34→20:38)
[2017-06-21] MEDS: SODIUM CHLORIDE 0.45% 1,000 ML IV SCH ×4 (05:36→20:01)
[2017-06-21 05:40] LABS: Calcium 8.4 MG/DL (8.5-10.1); Magnesium 2.8 MG/DL (1.8-2.4); Osmolality,Calculated 275.8 MOS/KG (273-304); Potassium 4.3 MMOL/L (3.5-5.1)
[2017-06-21 05:58] LABS: Risk Ratio 6.53; VLDL CHOLESTEROL 67.6 MG/DL
[2017-06-21 07:11] LABS: Band Neutrophils 1 % (0-10); Giant Platelets Few; Hypochromasia 1+; Lymphocytes 5 % (20-55); Microcytosis Slight; Ovalocytes Slight; Platelet Estimate Adequate; Segmented Neutrophils 94 % (50-85); Total Cells Counted 100
[2017-06-21] MEDS: APIXABAN 5 MG TABLET PO SCH ×2 (08:10→20:38)
[2017-06-21] MEDS: ASPIRIN EC 81 MG TABLET PO SCH (08:10)
[2017-06-21] MEDS: PANTOPRAZOLE 40 MG TABLET PO SCH (08:10)
[2017-06-21] MEDS: DOCUSATE SODIUM 100 MG CAPSULE PO SCH ×2 (08:10→20:38)
[2017-06-21] MEDS: LEVOFLOXACIN INJ 750 MG in PREMIX 1 EACH IV SCH (12:25)
[2017-06-22] MEDS: guaiFENesin/DM ER 600-30 MG TABLET PO PRN ×2 (03:35→09:09)
[2017-06-22] MEDS: methylPREDNISolone SOD SUC 40 MG/1 ML VIAL IV SCH ×3 (03:35→21:04)
[2017-06-22] MEDS: SODIUM CHLORIDE 0.45% 1,000 ML IV SCH ×2 (03:38→15:47)
[2017-06-22 05:27] LABS: Basophils % 0.1 % (0.0-0.8); Hemoglobin 8.8 GM/DL (14.0-18.0); Immature Granulocytes Absolute 0.14 #; Lymphocytes # 0.6 10*3/uL (1.4-4.0); Lymphocytes % 4.2 % (21.2-54.2); Mean Corpuscular HGB Conc 35.2 GM/DL (32-36); Mean Corpuscular Hemoglobin 31 PG (27-34); Mean Corpuscular Volume 87.7 FL (87-102); Monocytes # 0.6 10*3/uL (0.11-0.8); Monocytes % 4.4 % (1.7-12.7); Neutrophils # 13.3 10*3/uL (1.4-7.4); Neutrophils % 90.3 % (38.7-73.9); Platelet Count 235 T/CUMM (130-400); Red Blood Count 2.85 MC/CUMM (3.8-5.5); Red Cell Distribution Width 14.3 % (9.3-17.3); White Blood Count 14.7 T/CUMM (4-12)
[2017-06-22 05:48] LABS: Hypochromasia 1+; Lymphocytes 3 % (20-55); Segmented Neutrophils 93 % (50-85); Total Cells Counted 100
[2017-06-22 05:49] LABS: Microcytosis Slight; Platelet Estimate Normal; Target Cells Slight
[2017-06-22 05:52] LABS: Calcium 8.2 MG/DL (8.5-10.1); Magnesium 2.5 MG/DL (1.8-2.4); Osmolality,Calculated 278.5 MOS/KG (273-304); Potassium 4.1 MMOL/L (3.5-5.1)
[2017-06-22] MEDS ORDERED: GRANISETRON 1 MG/1 ML VIAL IV ONE (08:30)
[2017-06-22] MEDS ORDERED: diphenhydrAMINE 50 MG/1 ML VIAL IV ONE (08:30)
[2017-06-22] MEDS ORDERED: DEXAMETHASONE 10 MG/1 ML VIAL IV ONE (08:30)
[2017-06-22] MEDS ORDERED: SODIUM CHLORIDE 0.9% IV ONE (09:00)
[2017-06-22] MEDS ORDERED: CARBOplatin 450 MG in SODIUM CHLORIDE 0.9% 250 ML IV ONE (09:00)
[2017-06-22] MEDS ORDERED: FAMOTIDINE 20 MG/2 ML VIAL IV ONE (09:00)
[2017-06-22] MEDS ORDERED: PACLITAXEL IV ONE (09:00)
[2017-06-22] MEDS: DOCUSATE SODIUM 100 MG CAPSULE PO SCH ×2 (09:04→21:05)
[2017-06-22] MEDS: ASPIRIN EC 81 MG TABLET PO SCH (09:04)
[2017-06-22] MEDS: PANTOPRAZOLE 40 MG TABLET PO SCH (09:04)
[2017-06-22] MEDS: ENOXAPARIN 60 MG/0.6 ML SYRINGE SUBCUT SCH ×2 (10:47→21:05)
[2017-06-22] MEDS: LEVOFLOXACIN INJ 750 MG in PREMIX 1 EACH IV SCH (15:48)
[2017-06-22] MEDS ORDERED: WARFARIN 10 MG TABLET PO SCH (18:00)
[2017-06-23] MEDS: methylPREDNISolone SOD SUC 40 MG/1 ML VIAL IV SCH ×2 (04:12→12:41)
[2017-06-23 05:43] LABS: Hematocrit 24.1 VOL% (42.0-52.0); Hemoglobin 8.4 GM/DL (14.0-18.0); Immature Granulocytes % 1.3 %; Immature Granulocytes Absolute 0.15 #; Lymphocytes # 0.6 10*3/uL (1.4-4.0); Lymphocytes % 5.1 % (21.2-54.2); Mean Corpuscular HGB Conc 34.9 GM/DL (32-36); Mean Corpuscular Hemoglobin 31 PG (27-34); Mean Platelet Volume 10.7 FL (9.6-12.0); Monocytes # 0.5 10*3/uL (0.11-0.8); Monocytes % 4.2 % (1.7-12.7); Neutrophils # 10.6 10*3/uL (1.4-7.4); Neutrophils % 89.4 % (38.7-73.9); Platelet Count 222 T/CUMM (130-400); Red Blood Count 2.74 MC/CUMM (3.8-5.5); Red Cell Distribution Width 14.6 % (9.3-17.3); White Blood Count 11.9 T/CUMM (4-12)
[2017-06-23 05:48] LABS: INR 1.1; PT Patient Result 11.5 SECS
[2017-06-23 06:11] LABS: Hypochromasia Slight; Lymphocytes 7 % (20-55); Metamyelocytes 1 %; Platelet Estimate Normal; Segmented Neutrophils 89 % (50-85); Total Cells Counted 100
[2017-06-23 06:20] LABS: Calcium 7.7 MG/DL (8.5-10.1); Magnesium 2.3 MG/DL (1.8-2.4); Osmolality,Calculated 273.8 MOS/KG (273-304); Potassium 3.7 MMOL/L (3.5-5.1)
[2017-06-23] MEDS: SODIUM CHLORIDE 0.45% 1,000 ML IV SCH (07:28)
[2017-06-23] MEDS: ASPIRIN EC 81 MG TABLET PO SCH (08:05)
[2017-06-23] MEDS: DOCUSATE SODIUM 100 MG CAPSULE PO SCH (08:05)
[2017-06-23] MEDS: PANTOPRAZOLE 40 MG TABLET PO SCH (08:05)
[2017-06-23] MEDS: ENOXAPARIN 60 MG/0.6 ML SYRINGE SUBCUT SCH (08:11)
[2017-06-23 08:16] VITALS: BP 128/92
[2017-06-23] MEDS ORDERED: APIXABAN 2.5 MG TABLET PO SCH (09:30)
== END 2017-06-23 14:58 | disposition home or self-care (01) | DRG 871 ==
LOC: N.EDINP 10:38 → N.ED 10:38 → N.TELES 14:05 → N.4E 06-21 13:26

== ENCOUNTER 2017-06-27 01:34 | Inpatient (IN) ==
[2017-06-27] MEDS ORDERED: SODIUM CHLORIDE 0.9% 1,650 ML IV ONE (03:00)
[2017-06-27] MEDS ORDERED: AZITHROMYCIN INJ 500 MG in SODIUM CHLORIDE 0.9% 250 ML IV STA (03:02)
[2017-06-27] MEDS ORDERED: cefTRIAXone 1,000 MG in SODIUM CHLORIDE 0.9% 100 ML IV STA (03:02)
[2017-06-27 03:11] LABS: Basophils % 0.1 % (0.0-0.8); Eosinophils # 0.1 10*3/uL (0.0-0.87); Eosinophils % 0.9 % (0.00-10.9); Hemoglobin 8.9 GM/DL (14.0-18.0); Immature Granulocytes % 1.2 %; Immature Granulocytes Absolute 0.09 #; Lymphocytes # 0.5 10*3/uL (1.4-4.0); Lymphocytes % 6.5 % (21.2-54.2); Mean Corpuscular HGB Conc 34.2 GM/DL (32-36); Mean Corpuscular Hemoglobin 31 PG (27-34); Mean Corpuscular Volume 90.6 FL (87-102); Mean Platelet Volume 10.3 FL (9.6-12.0); Monocytes # 0.3 10*3/uL (0.11-0.8); Monocytes % 4.1 % (1.7-12.7); Neutrophils # 6.6 10*3/uL (1.4-7.4); Neutrophils % 87.2 % (38.7-73.9); Platelet Count 218 T/CUMM (130-400); Red Blood Count 2.87 MC/CUMM (3.8-5.5); Red Cell Distribution Width 14.6 % (9.3-17.3); White Blood Count 7.6 T/CUMM (4-12)
[2017-06-27 03:24] LABS: Albumin 2.3 G/DL (3.4-5.0); Bilirubin,Total 0.4 MG/DL (0.2-1.0); Calcium 8.6 MG/DL (8.5-10.1); Lactic Acid 1.9 MMOL/L (0.4-2.0); Osmolality,Calculated 267.4 MOS/KG (273-304); Potassium 3.9 MMOL/L (3.5-5.1); Total Protein 7.3 G/DL (6.4-8.3)
[2017-06-27] MEDS ORDERED: cefTRIAXone 1,000 MG VIAL ONE (03:43)
[2017-06-27] MEDS ORDERED: AZITHROMYCIN 500 MG VIAL IV ONE (03:43)
[2017-06-27 04:15] LABS: Apearance,Urine CLEAR (Clear); Bilirubin,Urine Negative (Negative); Blood, Urine Negative (Negative); Glucose,Urine (UA) Negative (Negative); Ketones,Urine Negative (Negative); Mucus,Urine Occasional /LPF (Occasional); Nitrite,Urine Negative (Negative); Protein,Urine 30 MG/DL; RBC,Urine 1 /HPF (0-4); Urine Color Yellow (Yellow); Urine Specific Gravity 1.016 (1.001-1.035); WBC,Urine 2 /HPF (0-6)
[2017-06-27] MEDS ORDERED: ACETAMINOPHEN 325 MG TABLET PO PRN (04:53)
[2017-06-27] MEDS ORDERED: ONDANSETRON 4 MG/2 ML VIAL IV PRN (04:53)
[2017-06-27] MEDS ORDERED: ALBUTEROL/IPRATROPIUM 3 ML NEB RESP TX PRN (05:06)
[2017-06-27] MEDS ORDERED: cefTRIAXone 1,000 MG in SODIUM CHLORIDE 0.9% 100 ML IV SCH (05:30)
[2017-06-27] MEDS ORDERED: METHOCARBAMOL INJ 1,000 MG in SODIUM CHLORIDE 0.9% 100 ML IV ONE (06:00)
[2017-06-27] MEDS: MORPHINE 2 MG/1 ML SYRINGE IV PRN (06:40)
[2017-06-27] MEDS: SODIUM CHLORIDE 0.9% 1,000 ML IV SCH ×3 (06:42→23:24)
[2017-06-27] MEDS: LEVOFLOXACIN INJ 750 MG in PREMIX 1 EACH IV SCH (06:42)
[2017-06-27] MEDS ORDERED: INFLUENZA VIRUS VACCINE 0.5 ML SYRINGE IM ONE (06:55)
[2017-06-27 08:04] LABS: INR 1.1; PT Patient Result 11.1 SECS; Partial Thromboplastin Time 29.6 SECS (0-40)
[2017-06-27 08:06] LABS: Troponin I Only 0.411 NG/ML (0.00-0.045)
[2017-06-27] MEDS: ALBUTEROL/IPRATROPIUM 3 ML NEB RESP TX SCH ×4 (08:17→20:32)
[2017-06-27 08:38] LABS: Barbiturates Screen,Urine Negative (Negative); Benzodiazepines Screen,Urine Negative (Negative); Cannabinoid Screen,Urine Negative (Negative); Opiate Screen,Urine Positive (Negative); Phencyclidine Screen,Urine Negative (Negative)
[2017-06-27] MEDS: ENOXAPARIN 40 MG/0.4 ML SYRINGE SUBCUT SCH (09:26)
[2017-06-27] MEDS: DOCUSATE SODIUM 100 MG CAPSULE PO SCH ×2 (09:26→21:29)
[2017-06-27] MEDS: MULTIVITAMIN (OCUVITE) TABLET PO SCH (09:26)
[2017-06-27] MEDS: PANTOPRAZOLE 40 MG TABLET PO SCH (09:26)
[2017-06-27] MEDS: FOLIC ACID 1 MG TABLET PO SCH (09:26)
[2017-06-27] MEDS: THIAMINE 100 MG TABLET PO SCH (09:26)
[2017-06-27] MEDS: cefTRIAXone 1,000 MG in SYRINGE 1 EACH IV SCH (18:12)
[2017-06-28] MEDS: SODIUM CHLORIDE 0.9% 1,000 ML IV SCH ×3 (00:09→12:48)
[2017-06-28] MEDS: ALBUTEROL/IPRATROPIUM 3 ML NEB RESP TX SCH ×7 (00:41→23:36)
[2017-06-28] MEDS: cefTRIAXone 1,000 MG in SYRINGE 1 EACH IV SCH ×2 (06:25→17:37)
[2017-06-28] MEDS: LEVOFLOXACIN INJ 750 MG in PREMIX 1 EACH IV SCH (06:34)
[2017-06-28] MEDS: ENOXAPARIN 40 MG/0.4 ML SYRINGE SUBCUT SCH (06:35)
[2017-06-28 07:12] LABS: Basophils % 0.1 % (0.0-0.8); Eosinophils % 0.2 % (0.00-10.9); Hematocrit 23.2 VOL% (42.0-52.0); Hemoglobin 8.3 GM/DL (14.0-18.0); Immature Granulocytes % 0.7 %; Immature Granulocytes Absolute 0.09 #; Lymphocytes # 0.9 10*3/uL (1.4-4.0); Lymphocytes % 7.2 % (21.2-54.2); Mean Corpuscular HGB Conc 35.8 GM/DL (32-36); Mean Corpuscular Hemoglobin 32 PG (27-34); Mean Corpuscular Volume 88.5 FL (87-102); Monocytes # 0.8 10*3/uL (0.11-0.8); Monocytes % 6.6 % (1.7-12.7); Neutrophils # 10.6 10*3/uL (1.4-7.4); Neutrophils % 85.2 % (38.7-73.9); Platelet Count 162 T/CUMM (130-400); Red Blood Count 2.62 MC/CUMM (3.8-5.5); Red Cell Distribution Width 14.9 % (9.3-17.3); White Blood Count 12.4 T/CUMM (4-12)
[2017-06-28 07:34] LABS: Macrocytosis 1+
[2017-06-28 08:12] LABS: Calcium 8.1 MG/DL (8.5-10.1); Magnesium 1.7 MG/DL (1.8-2.4); Osmolality,Calculated 261.5 MOS/KG (273-304); Potassium 3.8 MMOL/L (3.5-5.1); Risk Ratio 3.26; VLDL CHOLESTEROL 28.2 MG/DL
[2017-06-28] MEDS: FOLIC ACID 1 MG TABLET PO SCH (09:19)
[2017-06-28] MEDS: DOCUSATE SODIUM 100 MG CAPSULE PO SCH ×2 (09:19→20:45)
[2017-06-28] MEDS: MULTIVITAMIN (OCUVITE) TABLET PO SCH (09:19)
[2017-06-28] MEDS: PANTOPRAZOLE 40 MG TABLET PO SCH (09:19)
[2017-06-28] MEDS: THIAMINE 100 MG TABLET PO SCH (09:19)
[2017-06-28] MEDS: guaiFENesin/CODEINE 5 ML LIQUID PO PRN ×2 (13:18→20:46)
[2017-06-28] MEDS: MORPHINE 2 MG/1 ML SYRINGE IV PRN (20:48)
[2017-06-29] MEDS: SODIUM CHLORIDE 0.9% 1,000 ML IV SCH ×3 (00:55→18:25)
[2017-06-29] MEDS: ALBUTEROL/IPRATROPIUM 3 ML NEB RESP TX SCH ×6 (04:11→23:38)
[2017-06-29] MEDS: guaiFENesin/CODEINE 5 ML LIQUID PO PRN ×2 (05:04→12:27)
[2017-06-29] MEDS: cefTRIAXone 1,000 MG in SYRINGE 1 EACH IV SCH ×2 (05:51→18:25)
[2017-06-29] MEDS: LEVOFLOXACIN INJ 750 MG in PREMIX 1 EACH IV SCH (05:56)
[2017-06-29] MEDS: ENOXAPARIN 40 MG/0.4 ML SYRINGE SUBCUT SCH (06:02)
[2017-06-29] MEDS: DOCUSATE SODIUM 100 MG CAPSULE PO SCH ×2 (09:29→20:11)
[2017-06-29] MEDS: THIAMINE 100 MG TABLET PO SCH (09:30)
[2017-06-29] MEDS: PANTOPRAZOLE 40 MG TABLET PO SCH (09:30)
[2017-06-29] MEDS: FOLIC ACID 1 MG TABLET PO SCH (09:30)
[2017-06-29] MEDS: MULTIVITAMIN (OCUVITE) TABLET PO SCH (09:30)
[2017-06-29] MEDS: APIXABAN 2.5 MG TABLET PO SCH (20:11)
[2017-06-30] MEDS: ALBUTEROL/IPRATROPIUM 3 ML NEB RESP TX SCH ×5 (04:10→21:06)
[2017-06-30] MEDS: cefTRIAXone 1,000 MG in SYRINGE 1 EACH IV SCH ×2 (05:58→18:27)
[2017-06-30] MEDS: LEVOFLOXACIN INJ 750 MG in PREMIX 1 EACH IV SCH (06:03)
[2017-06-30 07:00] LABS: Eosinophils % 0.4 % (0.00-10.9); Hematocrit 20.2 VOL% (42.0-52.0); Hemoglobin 7.1 GM/DL (14.0-18.0); Immature Granulocytes % 1.1 %; Immature Granulocytes Absolute 0.12 #; Lymphocytes # 0.7 10*3/uL (1.4-4.0); Lymphocytes % 6.5 % (21.2-54.2); Mean Corpuscular HGB Conc 35.1 GM/DL (32-36); Mean Corpuscular Hemoglobin 31 PG (27-34); Mean Corpuscular Volume 87.8 FL (87-102); Mean Platelet Volume 10.6 FL (9.6-12.0); Monocytes # 0.8 10*3/uL (0.11-0.8); Monocytes % 7.2 % (1.7-12.7); Neutrophils % 84.8 % (38.7-73.9); Platelet Count 118 T/CUMM (130-400); Red Cell Distribution Width 15.2 % (9.3-17.3); White Blood Count 10.6 T/CUMM (4-12)
[2017-06-30 07:22] LABS: Giant Platelets Few; Hypochromasia 1+; Lymphocytes 2 % (20-55); Platelet Estimate Decreased; Segmented Neutrophils 92 % (50-85); Total Cells Counted 100
[2017-06-30 07:23] LABS: Microcytosis Slight
[2017-06-30] MEDS ORDERED: SODIUM CHLORIDE 0.9% 1,000 ML IV PRN ×2 (07:33→15:56)
[2017-06-30 07:38] LABS: Albumin 1.7 G/DL (3.4-5.0); Bilirubin,Total 0.7 MG/DL (0.2-1.0); Calcium 7.7 MG/DL (8.5-10.1); Magnesium 1.9 MG/DL (1.8-2.4); Osmolality,Calculated 268.2 MOS/KG (273-304); Potassium 3.7 MMOL/L (3.5-5.1); Total Protein 5.5 G/DL (6.4-8.3)
[2017-06-30] MEDS: MULTIVITAMIN (OCUVITE) TABLET PO SCH (08:34)
[2017-06-30] MEDS: guaiFENesin/CODEINE 5 ML LIQUID PO PRN ×2 (08:34→16:15)
[2017-06-30] MEDS: FOLIC ACID 1 MG TABLET PO SCH (08:34)
[2017-06-30] MEDS: APIXABAN 2.5 MG TABLET PO SCH ×2 (08:34→20:27)
[2017-06-30] MEDS: THIAMINE 100 MG TABLET PO SCH (08:34)
[2017-06-30] MEDS: DOCUSATE SODIUM 100 MG CAPSULE PO SCH ×2 (08:34→20:27)
[2017-06-30] MEDS: PANTOPRAZOLE 40 MG TABLET PO SCH (08:35)
[2017-06-30] MEDS: DEXAMETHASONE 4 MG TABLET PO SCH ×2 (16:05→20:27)
[2017-07-01] MEDS: ALBUTEROL/IPRATROPIUM 3 ML NEB RESP TX SCH ×4 (00:39→11:00)
[2017-07-01 03:30] LABS: Basophils % 0.1 % (0.0-0.8); Hematocrit 27.5 VOL% (42.0-52.0); Immature Granulocytes % 0.8 %; Immature Granulocytes Absolute 0.07 #; Lymphocytes # 0.3 10*3/uL (1.4-4.0); Mean Corpuscular HGB Conc 34.2 GM/DL (32-36); Mean Corpuscular Hemoglobin 30 PG (27-34); Mean Corpuscular Volume 87.9 FL (87-102); Mean Platelet Volume 10.8 FL (9.6-12.0); Monocytes # 0.1 10*3/uL (0.11-0.8); Monocytes % 1.3 % (1.7-12.7); Neutrophils # 7.9 10*3/uL (1.4-7.4); Neutrophils % 94.8 % (38.7-73.9); Platelet Count 123 T/CUMM (130-400); Red Blood Count 3.13 MC/CUMM (3.8-5.5); Red Cell Distribution Width 14.9 % (9.3-17.3); White Blood Count 8.3 T/CUMM (4-12)
[2017-07-01 03:34] LABS: Hemoglobin 9.4 GM/DL (14.0-18.0)
[2017-07-01 04:30] LABS: Band Neutrophils 16 % (0-10); Lymphocytes 1 % (20-55); Segmented Neutrophils 82 % (50-85); Total Cells Counted 100
[2017-07-01 04:31] LABS: Anisocytosis 1+; Poikilocytosis 1+; Polychromasia 1+
[2017-07-01] MEDS: cefTRIAXone 1,000 MG in SYRINGE 1 EACH IV SCH (06:11)
[2017-07-01] MEDS: LEVOFLOXACIN INJ 750 MG in PREMIX 1 EACH IV SCH (06:12)
[2017-07-01] MEDS: SODIUM CHLORIDE 0.9% 1,000 ML IV SCH ×2 (07:33→11:00)
[2017-07-01] MEDS: DOCUSATE SODIUM 100 MG CAPSULE PO SCH (08:36)
[2017-07-01] MEDS: APIXABAN 2.5 MG TABLET PO SCH (08:36)
[2017-07-01] MEDS: PANTOPRAZOLE 40 MG TABLET PO SCH (08:36)
[2017-07-01] MEDS: MULTIVITAMIN (OCUVITE) TABLET PO SCH (08:36)
[2017-07-01] MEDS: THIAMINE 100 MG TABLET PO SCH (08:36)
[2017-07-01] MEDS: DEXAMETHASONE 4 MG TABLET PO SCH (08:36)
[2017-07-01] MEDS: FOLIC ACID 1 MG TABLET PO SCH (08:36)
[2017-07-01 11:40] VITALS: BP 114/88
== END 2017-07-01 14:00 | disposition home or self-care (01) | DRG 194 ==
LOC: N.ED 01:34 → N.EDINP 04:52 → SUATTDRO 04:52 → N.4E 05:24
PROVIDERS: ADMIT Internal Medicine Nephrology; ATTEND Internal Medicine Geriatric Medicine

== ENCOUNTER 2017-07-04 12:45 | Inpatient (IN) ==
[2017-07-04 14:56] LABS: Basophils % 0.2 % (0.0-0.8); Hematocrit 35.5 VOL% (42.0-52.0); Hemoglobin 12.1 GM/DL (14.0-18.0); Immature Granulocytes % 1.4 %; Immature Granulocytes Absolute 0.19 #; Lymphocytes # 0.4 10*3/uL (1.4-4.0); Lymphocytes % 3.2 % (21.2-54.2); Mean Corpuscular HGB Conc 34.1 GM/DL (32-36); Mean Corpuscular Hemoglobin 30 PG (27-34); Mean Platelet Volume 11.1 FL (9.6-12.0); Monocytes # 0.8 10*3/uL (0.11-0.8); Monocytes % 5.9 % (1.7-12.7); Neutrophils # 12.2 10*3/uL (1.4-7.4); Neutrophils % 89.3 % (38.7-73.9); Platelet Count 109 T/CUMM (130-400); Red Blood Count 4.08 MC/CUMM (3.8-5.5); Red Cell Distribution Width 15.6 % (9.3-17.3); White Blood Count 13.7 T/CUMM (4-12)
[2017-07-04 15:19] LABS: Albumin 2.3 G/DL (3.4-5.0); Bilirubin,Total 0.8 MG/DL (0.2-1.0); Calcium 8.9 MG/DL (8.5-10.1); Osmolality,Calculated 267.7 MOS/KG (273-304); Potassium 4.4 MMOL/L (3.5-5.1); Total Protein 7.4 G/DL (6.4-8.3)
[2017-07-04 15:47] LABS: Lymphocytes 5 % (20-55); Polychromasia Few; Segmented Neutrophils 92 % (50-85); Total Cells Counted 100
[2017-07-04 15:48] LABS: Platelet Estimate Decreased
[2017-07-04] MEDS ORDERED: ONDANSETRON 4 MG/2 ML VIAL IV PRN (17:31)
[2017-07-04] MEDS ORDERED: ACETAMINOPHEN 325 MG TABLET PO PRN (17:31)
[2017-07-04 19:08] LABS: Apearance,Urine Slightly Hazy (Clear); Bilirubin,Urine Negative (Negative); Blood, Urine Negative (Negative); Glucose,Urine (UA) 50 mg/dL (Negative); Ketones,Urine Negative (Negative); Mucus,Urine Occasional /LPF (Occasional); Nitrite,Urine Negative (Negative); Protein,Urine Negative; RBC,Urine <1 /HPF (0-4); Urine Color Yellow (Yellow); Urine Specific Gravity 1.019 (1.001-1.035); Urine Urobilinogen < 2.0 EU/DL (0.2-1.0); WBC,Urine <1 /HPF (0-6)
[2017-07-04] MEDS: SODIUM CHLORIDE 0.9% 1,000 ML IV SCH (20:53)
[2017-07-05] MEDS: SODIUM CHLORIDE 0.9% 1,000 ML IV SCH ×4 (05:00→18:25)
[2017-07-05] MEDS: MEGESTROL ES 125 MG/ML 30 ML/BOTTLE PO SCH (08:21)
[2017-07-05] MEDS: DEXAMETHASONE 4 MG TABLET PO SCH ×4 (09:29→21:13)
[2017-07-05] MEDS: CITALOPRAM 20 MG TABLET PO SCH ×2 (09:30→14:42)
[2017-07-05] MEDS: APIXABAN 2.5 MG TABLET PO SCH ×3 (09:30→21:13)
[2017-07-05] MEDS: FLUCONAZOLE 200 MG TABLET PO SCH ×2 (09:30→14:42)
[2017-07-05] MEDS: AMOXICILLIN 500 MG CAPSULE PO SCH ×2 (14:43→21:12)
[2017-07-05] MEDS: MORPHINE 2 MG/1 ML SYRINGE IV PRN ×2 (18:49→23:38)
[2017-07-06] MEDS: SODIUM CHLORIDE 0.9% 1,000 ML IV SCH ×3 (05:27→09:38)
[2017-07-06] MEDS: AMOXICILLIN 500 MG CAPSULE PO SCH ×3 (06:26→21:28)
[2017-07-06] MEDS: MORPHINE 2 MG/1 ML SYRINGE IV PRN (06:27)
[2017-07-06] MEDS: CITALOPRAM 20 MG TABLET PO SCH (09:19)
[2017-07-06] MEDS: FLUCONAZOLE 200 MG TABLET PO SCH (09:19)
[2017-07-06] MEDS: MEGESTROL ES 125 MG/ML 30 ML/BOTTLE PO SCH (09:19)
[2017-07-06] MEDS: DEXAMETHASONE 4 MG TABLET PO SCH ×3 (09:19→21:28)
[2017-07-06] MEDS: APIXABAN 2.5 MG TABLET PO SCH ×2 (09:21→21:28)
[2017-07-06] MEDS ORDERED: ASPIRIN CHEW 81 MG TABLET PO ONE (11:46)
[2017-07-07 04:07] LABS: Basophils % 0.1 % (0.0-0.8); Hematocrit 28.3 VOL% (42.0-52.0); Hemoglobin 9.6 GM/DL (14.0-18.0); Immature Granulocytes % 1.3 %; Immature Granulocytes Absolute 0.13 #; Lymphocytes # 0.5 10*3/uL (1.4-4.0); Lymphocytes % 4.6 % (21.2-54.2); Mean Corpuscular HGB Conc 33.9 GM/DL (32-36); Mean Corpuscular Hemoglobin 30 PG (27-34); Mean Corpuscular Volume 88.2 FL (87-102); Mean Platelet Volume 11.8 FL (9.6-12.0); Monocytes # 0.5 10*3/uL (0.11-0.8); Monocytes % 4.4 % (1.7-12.7); Neutrophils # 9.1 10*3/uL (1.4-7.4); Neutrophils % 89.6 % (38.7-73.9); Red Blood Count 3.21 MC/CUMM (3.8-5.5); Red Cell Distribution Width 15.7 % (9.3-17.3); White Blood Count 10.2 T/CUMM (4-12)
[2017-07-07 04:15] LABS: Platelet Count 79 T/CUMM (130-400)
[2017-07-07 04:53] LABS: Calcium 8.1 MG/DL (8.5-10.1); Osmolality,Calculated 275.1 MOS/KG (273-304); Potassium 4.3 MMOL/L (3.5-5.1)
[2017-07-07 05:30] LABS: Acanthocytes Few; Band Neutrophils 1 % (0-10); Burr Cells Slight; Hypochromasia 1+; Lymphocytes 1 % (20-55); Microcytosis 1+; Myelocytes 1 %; Nucleated Red Blood Cells 1 (0-5); Segmented Neutrophils 94 % (50-85); Total Cells Counted 100
[2017-07-07 05:31] LABS: Platelet Estimate Decreased
[2017-07-07] MEDS: SODIUM CHLORIDE 0.9% 1,000 ML IV SCH ×3 (07:29→12:59)
[2017-07-07] MEDS: AMOXICILLIN 500 MG CAPSULE PO SCH ×3 (07:37→21:17)
[2017-07-07] MEDS: CITALOPRAM 20 MG TABLET PO SCH (09:21)
[2017-07-07] MEDS: DEXAMETHASONE 4 MG TABLET PO SCH ×3 (09:22→21:17)
[2017-07-07] MEDS: APIXABAN 2.5 MG TABLET PO SCH ×2 (09:22→21:17)
[2017-07-07] MEDS: FLUCONAZOLE 200 MG TABLET PO SCH (09:22)
[2017-07-07] MEDS: MEGESTROL ES 125 MG/ML 30 ML/BOTTLE PO SCH (12:59)
[2017-07-07] MEDS: MORPHINE 2 MG/1 ML SYRINGE IV PRN (21:17)
[2017-07-07] MEDS: guaiFENesin/CODEINE 5 ML LIQUID PO PRN (23:46)
[2017-07-08] MEDS: SODIUM CHLORIDE 0.9% 1,000 ML IV SCH ×4 (03:23→18:55)
[2017-07-08 05:37] LABS: Basophils % 0.1 % (0.0-0.8); Hematocrit 26.7 VOL% (42.0-52.0); Hemoglobin 8.9 GM/DL (14.0-18.0); Immature Granulocytes % 0.9 %; Immature Granulocytes Absolute 0.09 #; Lymphocytes # 0.3 10*3/uL (1.4-4.0); Lymphocytes % 2.9 % (21.2-54.2); Mean Corpuscular HGB Conc 33.3 GM/DL (32-36); Mean Corpuscular Hemoglobin 30 PG (27-34); Mean Platelet Volume 11.3 FL (9.6-12.0); Monocytes # 0.5 10*3/uL (0.11-0.8); Monocytes % 4.7 % (1.7-12.7); Neutrophils # 9.6 10*3/uL (1.4-7.4); Neutrophils % 91.4 % (38.7-73.9); Platelet Count 78 T/CUMM (130-400); Red Cell Distribution Width 15.9 % (9.3-17.3); White Blood Count 10.5 T/CUMM (4-12)
[2017-07-08] MEDS: AMOXICILLIN 500 MG CAPSULE PO SCH ×3 (05:57→21:10)
[2017-07-08 06:03] LABS: Band Neutrophils 3 % (0-10); Hypochromasia 1+; Lymphocytes 2 % (20-55); Microcytosis 1+; Platelet Estimate Decreased; Segmented Neutrophils 93 % (50-85); Total Cells Counted 100
[2017-07-08 06:29] LABS: Albumin 1.8 G/DL (3.4-5.0); Bilirubin,Total 0.4 MG/DL (0.2-1.0); Osmolality,Calculated 275.1 MOS/KG (273-304); Potassium 4.3 MMOL/L (3.5-5.1)
[2017-07-08] MEDS: APIXABAN 2.5 MG TABLET PO SCH ×2 (08:49→21:10)
[2017-07-08] MEDS: MORPHINE 2 MG/1 ML SYRINGE IV PRN ×2 (08:49→23:37)
[2017-07-08] MEDS: FLUCONAZOLE 200 MG TABLET PO SCH (08:49)
[2017-07-08] MEDS: DEXAMETHASONE 4 MG TABLET PO SCH ×3 (08:49→21:10)
[2017-07-08] MEDS: CITALOPRAM 20 MG TABLET PO SCH (08:49)
[2017-07-08] MEDS: MEGESTROL ES 125 MG/ML 30 ML/BOTTLE PO SCH (10:25)
[2017-07-09] MEDS ORDERED: LORazepam 2 MG/1 ML VIAL IV ONE
[2017-07-09] MEDS: guaiFENesin/CODEINE 5 ML LIQUID PO PRN (02:29)
[2017-07-09] MEDS: SODIUM CHLORIDE 0.9% 1,000 ML IV SCH ×3 (03:17→22:22)
[2017-07-09 06:20] LABS: Basophils % 0.1 % (0.0-0.8); Hematocrit 28.8 VOL% (42.0-52.0); Hemoglobin 9.6 GM/DL (14.0-18.0); Immature Granulocytes % 1.1 %; Immature Granulocytes Absolute 0.13 #; Lymphocytes # 0.3 10*3/uL (1.4-4.0); Lymphocytes % 2.1 % (21.2-54.2); Mean Corpuscular HGB Conc 33.3 GM/DL (32-36); Mean Corpuscular Hemoglobin 30 PG (27-34); Mean Corpuscular Volume 88.6 FL (87-102); Mean Platelet Volume 11.1 FL (9.6-12.0); Monocytes # 0.6 10*3/uL (0.11-0.8); Monocytes % 5.3 % (1.7-12.7); Neutrophils # 11.1 10*3/uL (1.4-7.4); Neutrophils % 91.4 % (38.7-73.9); Platelet Count 71 T/CUMM (130-400); Red Blood Count 3.25 MC/CUMM (3.8-5.5); Red Cell Distribution Width 16.2 % (9.3-17.3); White Blood Count 12.1 T/CUMM (4-12)
[2017-07-09 06:48] LABS: Albumin 1.9 G/DL (3.4-5.0); Bilirubin,Total 0.5 MG/DL (0.2-1.0); Calcium 8.3 MG/DL (8.5-10.1); Osmolality,Calculated 270.2 MOS/KG (273-304); Potassium 4.1 MMOL/L (3.5-5.1); Total Protein 6.1 G/DL (6.4-8.3)
[2017-07-09] MEDS: AMOXICILLIN 500 MG CAPSULE PO SCH ×3 (07:03→21:40)
[2017-07-09 07:40] LABS: Burr Cells Slight; Hypochromasia Slight; Lymphocytes 2 % (20-55); Platelet Estimate Decreased; Segmented Neutrophils 95 % (50-85); Total Cells Counted 100
[2017-07-09] MEDS: CITALOPRAM 20 MG TABLET PO SCH (10:43)
[2017-07-09] MEDS: DEXAMETHASONE 4 MG TABLET PO SCH ×3 (10:43→21:40)
[2017-07-09] MEDS: MEGESTROL ES 125 MG/ML 30 ML/BOTTLE PO SCH (11:27)
[2017-07-09] MEDS: APIXABAN 2.5 MG TABLET PO SCH ×2 (11:27→21:40)
[2017-07-09] MEDS: FLUCONAZOLE 200 MG TABLET PO SCH (11:27)
[2017-07-09] MEDS: MORPHINE 2 MG/1 ML SYRINGE IV PRN ×2 (16:37→21:41)
[2017-07-10] MEDS: SODIUM CHLORIDE 0.9% 1,000 ML IV SCH ×3 (03:51→20:24)
[2017-07-10] MEDS: MORPHINE 2 MG/1 ML SYRINGE IV PRN ×4 (03:52→21:29)
[2017-07-10] MEDS: AMOXICILLIN 500 MG CAPSULE PO SCH ×3 (05:16→21:29)
[2017-07-10] MEDS: DEXAMETHASONE 4 MG TABLET PO SCH ×3 (10:01→21:29)
[2017-07-10] MEDS: FLUCONAZOLE 200 MG TABLET PO SCH (10:01)
[2017-07-10] MEDS: MEGESTROL ES 125 MG/ML 30 ML/BOTTLE PO SCH (10:01)
[2017-07-10] MEDS: APIXABAN 2.5 MG TABLET PO SCH ×2 (10:01→21:29)
[2017-07-10] MEDS: CITALOPRAM 20 MG TABLET PO SCH (10:01)
[2017-07-10] MEDS ORDERED: hydrALAZINE 20 MG/1 ML VIAL IV PRN (17:47)
[2017-07-10] MEDS ORDERED: amLODIPine 5 MG TABLET PO SCH (17:58)
[2017-07-10] MEDS ORDERED: ZALEPLON 5 MG CAPSULE PO ONE (21:30)
[2017-07-11] MEDS: SODIUM CHLORIDE 0.9% 1,000 ML IV SCH (05:09)
[2017-07-11] MEDS: AMOXICILLIN 500 MG CAPSULE PO SCH (07:38)
[2017-07-11] MEDS ORDERED: amLODIPine 5 MG TABLET PO SCH (09:00)
[2017-07-11] MEDS: DEXAMETHASONE 4 MG TABLET PO SCH (09:19)
[2017-07-11] MEDS: FLUCONAZOLE 200 MG TABLET PO SCH (09:19)
[2017-07-11] MEDS: CITALOPRAM 20 MG TABLET PO SCH (09:19)
[2017-07-11] MEDS: APIXABAN 2.5 MG TABLET PO SCH (09:19)
[2017-07-11] MEDS: MEGESTROL ES 125 MG/ML 30 ML/BOTTLE PO SCH (09:20)
[2017-07-11] MEDS: MORPHINE 2 MG/1 ML SYRINGE IV PRN (09:21)
[2017-07-11 11:55] VITALS: BP 138/83
== END 2017-07-11 14:15 | disposition hospice, home (50) | DRG 641 ==
LOC: N.ED 12:45 → N.EDINP 12:45 → SUATTDRO 16:47 → N.3E 19:03 → SUATTDRO 07-06 15:19
PROVIDERS: ADMIT Internal Medicine; ATTEND Hospitalist